=== PATIENT | female | born 1975 | race Caucasian/White ===

== ENCOUNTER 2018-04-04 00:51 | Emergency (ER) | payer SELFPAY ==
--- NOTE | 2018-04-04 01:04 | ER Document Report ---
ED General - General Chief Complaint: Chest Pain Stated Complaint: CHEST PAIN Time Seen by Provider: 04/04/18 01:03 Notes: Patient is a 43-year-old male presents with complaint of pain in the left side of the chest. Pain radiates around the left rib cage and into the left upper chest. She says is been there since Sunday. No fevers. No trauma. No injuries. She says is worse when she twists her torso a certain way or if she pushes away with her left arm. No family history of coronary disease except for her father dying when he was in his 80s. He suddenly and the cause is not clear. No other history of MIs that they are aware of. Patient only takes hormone therapy because of previous history of hysterectomy. She is on no other medications other than omeprazole. She is otherwise very healthy. She does not smoke drink or do drugs. She denies any leg pain or leg swelling. TRAVEL OUTSIDE OF THE [place] IN LAST 30 DAYS: No - Related Data Allergies/Adverse Reactions: No Known Allergies Allergy (Unverified 04/04/18 00:54) Past Medical History - Social History Smoking Status: Never Smoker Frequency of alcohol use: None Drug Abuse: None Family History: Reviewed & Not Pertinent Review of Systems - Review of Systems Notes: My Normal Review Basic REVIEW OF SYSTEMS: CONSTITUTIONAL : Denies fever, chills, or sweats. Denies recent illness. EENT: Denies eye, ear, throat, or mouth pain or symptoms. Denies nasal or sinus congestion. CARDIOVASCULAR: Left sided chest pain RESPIRATORY: Denies cough, cold, or chest congestion. Denies shortness of breath, difficulty breathing, or wheezing. GASTROINTESTINAL: Denies abdominal pain. Denies nausea, vomiting, or diarrhea. MUSCULOSKELETAL: No back pain or joint pain or swelling. SKIN: Denies rash or skin lesions. NEUROLOGICAL: Denies altered mental status or loss of consciousness. Denies sensory or motor loss. ALL OTHER SYSTEMS REVIEWED AND NEGATIVE. Physical Exam - Vital signs Vitals: Temp Pulse Resp BP Pulse Ox 97.3 F 67 16 138/76 H 100 04/04/18 01:06 04/04/18 01:06 04/04/18 01:06 04/04/18 01:06 04/04/18 01:06 - Notes Notes: General Appearance: Well nourished, alert, cooperative, no acute distress, mild obvious discomfort. Vitals: reviewed, See vital signs table. Head: no swelling or tenderness to the head Eyes: PERRL, EOMI, Conjuctiva clear Mouth: No decreasd moisture Neck: Supple, no neck swelling. Lungs: No wheezing, No rales, No rhonci, No accessory muscle use, good air exchange bilaterally. Heart: Normal rate, Regular rythm, No murmur, no rub Chest wall: Patient has very easily reproducible pain palpation over the left chest wall and around the left rib cage into the left upper chest. His pain is also easily reproducible when I have the patient push with her hands against my hand. She has a lot of difficulty pushing with the left arm because it causes a lot of pain into her chest and ribs. Abdomen: Normal BS, soft, No rigidity, No abdominal tenderness, No guarding, no rebound, no abdominal masses, no organomegaly Extremities: strength 5/5 in all extremities, good pulses in all extremities, no swelling or tenderness in the extremities, no edema. Skin: warm, dry, appropriate color, no rash on the back. No evidence of shingles. Neuro: speech clear, oriented x 3, normal affect, responds appropriately to questions. Course - Re-evaluation Re-evalutation: 04/04/18 02:26 Patient's pain is easily reproducible to palpation. Is also easily reducible with motion and palpation. I suspect her pain is musculoskeletal. She has no sniffing cardiac risk factors. Heart score is 1. I feel she is safe to be discharged home. I explained this to the patient and her daughter. Her daughter is one of our ER techs that I know well. I informed them to return to the ER immediately if she has worsening pain, difficulty breathing, or feels unwell. I explained to them that despite having negative workup is still always important to have close follow-up when someone has chest pain. They agreeable to this. Dictation of this chart was performed using voice recognition software; therefore, there may be some unintended grammatical errors. - Vital Signs Vital signs: Temp Pulse Resp BP Pulse Ox 97.3 F 67 16 138/76 H 100 04/04/18 01:06 04/04/18 01:06 04/04/18 01:06 04/04/18 01:06 11/01/18 01:06 - Laboratory Result Diagrams: 04/04/18 01:20 04/04/18 01:20 Laboratory results interpreted by me: 04/04/18 01:20 Creatinine 0.45 L - EKG Interpretation by Me Additional EKG results interpreted by me: 04/04/18 01:03 EKG is reviewed and interpreted by me. EKG shows sinus rhythm with a rate of [address] segment elevation or depression. No ischemic T wave inversions. ID interval, QRS duration, QTc intervals are within normal range. No old EKG available for comparison. Discharge - Discharge Clinical Impression: Chest pain Qualifiers: Chest pain type: unspecified Qualified Code(s): R07.9 - Chest pain, unspecified Condition: Good Disposition: HOME, SELF-CARE Additional Instructions: Based on your exam and symptoms I suspect that your chest pain is related to the muscles or ribs in your chest. I do not think it is related to your heart. The workup looking at your heart tonight was negative. Even though the workup tonight is negative, you should still have a low threshold to return to the ER if you have worsening pain, difficulty breathing, or feel unwell. Please follow-up with your doctor or the heart doctor within 2-3 days for close reevaluation. I will refer you to the heart doctor. His name is Dr. Hernandez. Call his office this morning to make a close follow-up appointment. Referrals: FAREED HERNANDEZ MD [ACTIVE STAFF] - Follow up tomorrow (call office this am to make a close follow up appointment.)
[2018-04-04] MEDS ORDERED: ACETAMINOPHEN 325 MG TABLET PO ONE (01:16)
[2018-04-04 01:32] LABS: ABSOLUTE BASOPHILS # (AUTO) 0.1 10^3/uL (0.0-0.2); ABSOLUTE EOSINOPHILS # (AUTO) 0.2 10^3/uL (0.0-0.6); ABSOLUTE LYMPHOCYTES (AUTO) 2.2 10^3/uL (0.5-4.7); ABSOLUTE MONOCYTES (AUTO) 0.4 10^3/uL (0.1-1.4); ABSOLUTE NEUT (AUTO) 2.7 10^3/uL (1.7-8.2); BASOPHILS % (AUTO) 1.1 % (0-2); EOSINOPHILS % (AUTO) 2.8 % (0-6); HEMATOCRIT 37.9 % (36.0-47.0); HEMOGLOBIN 13.1 g/dL (12.0-15.5); LYMPHOCYTES % (AUTO) 39.3 % (13-45); MEAN CORPUSCULAR HGB CONC 34.7 g/dL (32.0-36.0); MEAN CORPUSCULAR VOLUME 87 fl (80-97); MONOCYTES % (AUTO) 7.9 % (3-13); PLATELET COUNT 179 10^3/uL (150-450); RED BLOOD COUNT 4.38 10^6/uL (3.72-5.28); RED CELL DISTRIBUTION WIDTH 13.2 % (11.5-14.0); SEGMENTED NEUTROPHILS % (AUTO) 48.9 % (42-78); TOTAL CELLS COUNTED % (AUTO) 100 %; WHITE BLOOD COUNT 5.6 10^3/uL (4.0-10.5)
[2018-04-04 01:45] LABS: ALANINE AMINOTRANSFERASE 28 U/L (9-52); ALBUMIN 4.3 g/dL (3.5-5.0); ALKALINE PHOSPHATASE 82 U/L (38-126); ANION GAP 12 (5-19); ASPARTATE AMINO TRANSFERASE 27 U/L (14-36); BILIRUBIN,DIRECT 0.2 mg/dL (0.0-0.4); BILIRUBIN,TOTAL 0.4 mg/dL (0.2-1.3); BLOOD UREA NITROGEN 12 mg/dL (7-20); CALCIUM 9.2 mg/dL (8.4-10.2); CARBON DIOXIDE 30 mmol/L (22-30); CHLORIDE 103 mmol/L (98-107); GLUCOSE 96 mg/dL (75-110); POTASSIUM 3.9 mmol/L (3.6-5.0); SODIUM 144.9 mmol/L (137-145); TOTAL PROTEIN 7.1 g/dL (6.3-8.2)
--- NOTE | 2018-04-04 01:54 | RADIOLOGY REPORT (SQ) ---
EXAM DESCRIPTION: XR CHEST 1 VIEW COMPLETED DATE/TME: 04/04/2018 01:17 CLINICAL HISTORY: 43 years, Female, chest pain COMPARISON: None. NUMBER OF VIEWS: 1 TECHNIQUE: Frontal view the chest LIMITATIONS: None. FINDINGS: Heart size upper limits of normal. Lungs are clear. No pneumothorax IMPRESSION: Heart size at the upper limits of normal. Lungs are clear 2010 [employer]- All Rights Reserved
[2018-04-04 06:11] VITALS: BP 119/76
--- NOTE | 2018-04-04 12:28 | EKG REPORT ---
SEVERITY:- NORMAL ECG - SINUS RHYTHM : Confirmed by: Ariella Rich MD 04-Apr-2018 12:27:20
== END 2018-04-04 02:40 | disposition home or self-care (01) ==
LOC: ER 00:51
DX: R07.9 Chest pain, unspecified (principal)
CPT/HCPCS: 36415; 71045; 80053; 84484; 85025; 93005; 93010; 99285

== ENCOUNTER 2019-11-16 05:00 | Emergency (ER) | payer SELFPAY ==
[2019-11-16] MEDS ORDERED: DIAZEPAM INJ 10 MG/2 ML DISP.SYRIN IV ONE ×2 (05:10→05:51)
[2019-11-16] MEDS ORDERED: NORMAL SALINE 1000 ML 1,000 ML IV ONE (05:11)
[2019-11-16 05:25] LABS: ABSOLUTE BASOPHILS # (AUTO) 0.1 10^3/uL (0.0-0.2); ABSOLUTE EOSINOPHILS # (AUTO) 0.1 10^3/uL (0.0-0.6); ABSOLUTE LYMPHOCYTES (AUTO) 2.1 10^3/uL (0.5-4.7); ABSOLUTE MONOCYTES (AUTO) 0.4 10^3/uL (0.1-1.4); ABSOLUTE NEUT (AUTO) 4.6 10^3/uL (1.7-8.2); BASOPHILS % (AUTO) 0.7 % (0-2); HEMATOCRIT 40.3 % (36.0-47.0); HEMOGLOBIN 13.9 g/dL (12.0-15.5); LYMPHOCYTES % (AUTO) 28.9 % (13-45); MEAN CORPUSCULAR HEMOGLOBIN 30.9 pg (27.0-33.4); MEAN CORPUSCULAR HGB CONC 34.4 g/dL (32.0-36.0); MEAN CORPUSCULAR VOLUME 90 fl (80-97); MONOCYTES % (AUTO) 5.7 % (3-13); PLATELET COUNT 194 10^3/uL (150-450); RED BLOOD COUNT 4.49 10^6/uL (3.72-5.28); RED CELL DISTRIBUTION WIDTH 12.9 % (11.5-14.0); SEGMENTED NEUTROPHILS % (AUTO) 63.7 % (42-78); TOTAL CELLS COUNTED % (AUTO) 100 %; WHITE BLOOD COUNT 7.3 10^3/uL (4.0-10.5)
--- NOTE | 2019-11-16 05:28 | ER Document Report ---
Entered by KOKO SIMPSON SCRIBE 11/16/19 0519 Acting as scribe for:ANGIE LOPEZ IV, MD ED General - General Mode of Arrival: Medic Information source: Relative - Daughter, Emergency Med Personnel TRAVEL OUTSIDE OF THE [place] IN LAST 30 DAYS: No <ANGIE LOPEZ IV - Last Filed: 11/16/19 05:45> <ORLANDO MOTTA - Last Filed: 11/16/19 12:54> - General Chief Complaint: Other Stated Complaint: NOT FEELING WELL Primary Care Provider: RAMANA FARLEY MD [Primary Care Provider] - Follow up as needed Notes: This 44 year old female patient brought in by EMS from home presents to the ED today with complaints of altered mental status that started just prior to arrival. EMS reports that they were called to the patient's residence for cardiac arrest; however, upon their arrival, the patient had a pulse and was breathing. EMS states that the patient was altered with intermittent episodes of twitching and only responsive to a deep sternal rub. EMS administered 0.5 mg Narcan at the scene. Daughter at bedside states that the patient gets a "twitching motion" to her arm sometimes and takes a muscle relaxer for it as needed. Per daughter, the patient has been having spousal issues and went out last night with her where she had approximately x4 beers, stating that she usually doesn't drink. She states that she was called around 0400 and told that her mother was on the way to the ED due to her altered mental status. She also states that the patient has been under a lot of stress. Patient is a [place]yanese-speaker. (ANGIE LOPEZ IV) - Related Data Allergies/Adverse Reactions: No Known Allergies Allergy (Unverified 04/04/18 00:54) Past Medical History - General Information source: Relative - Daughter - Social History Smoking Status: Unknown if Ever Smoked Cigarette use (# per day): No Chew tobacco use (# tins/day): No Smoking Education Provided: No Frequency of alcohol use: Social Lives with: Spouse/Significant other Family History: Reviewed & Not Pertinent <ANGIE LOPEZ IV - Last Filed: 11/16/19 05:45> - Social History Smoking Status: Unknown if Ever Smoked Family History: Reviewed & Not Pertinent <ORLANDO MOTTA - Last Filed: 11/16/19 12:54> Review of Systems - Review of Systems -: Yes ROS unobtainable due to patient's medical condition <ANGIE LOPEZ IV - Last Filed: 11/16/19 05:45> Physical Exam - General General appearance: Other - Somnolent. Random jerking motions that do not appear consistent with focal or complex seizures - HEENT Head: Normocephalic, Atraumatic Eyes: Normal Pupils: PERRL - Respiratory Respiratory status: No respiratory distress Chest status: Nontender Breath sounds: Normal Chest palpation: Normal - Cardiovascular Rhythm: Regular Heart sounds: Normal auscultation Murmur: No Friction rub: No Gallop: None auscultated - Abdominal Inspection: Normal Distension: No distension Bowel sounds: Normal Tenderness: Nontender - Abdomen soft Organomegaly: No organomegaly - Back Back: Normal, Nontender - Extremities General upper extremity: Normal inspection General lower extremity: Normal inspection - Psychological Associated symptoms: Other - Unable to assess due to patient's medical condition - Skin Skin Temperature: Warm Skin Moisture: Dry Skin Color: Normal <ANGIE LOPEZ IV - Last Filed: 11/16/19 05:45> - Vital signs Vitals: Resp Pulse Ox 16 99 11/16/19 05:02 11/16/19 05:02 - Neurological Notes: Opens eyes at times and stares into space. (JOHNANGIE WATERS IV) Course - Laboratory Result Diagrams: 11/16/19 05:07 11/16/19 05:07 <ANGIE LOPEZ IV - Last Filed: 11/16/19 05:45> - Laboratory Result Diagrams: 11/16/19 05:07 11/16/19 05:07 <ORLANDO MOTTA - Last Filed: 11/16/19 12:54> - Vital Signs Vital signs: Temp Pulse Resp BP Pulse Ox 97.8 F 14 124/96 H 98 11/16/19 05:27 11/16/19 12:01 11/16/19 12:01 11/16/19 12:01 - Laboratory Laboratory results interpreted by me: 11/16/19 05:07 Chloride 108 H - EKG Interpretation by Me Additional EKG results interpreted by me: 11/16/19 05:45 EKG obtained on 11/16/2019 at 0539 hrs. was interpreted by this MD. Findings: Normal sinus rhythm, rate 84, normal axis, P waves preceding QRS complexes, QRS complexes appear narrow, there are no obvious patterns of ST segment elevation or depression present to suggest acute myocardial ischemia or infarction. Impression: Normal sinus rhythm with nonspecific ST segments. (ANGIE LOPEZ IV) Discharge <ANGIE LOPEZ IV - Last Filed: 11/16/19 05:45> <M[place]O - Last Filed: 11/16/19 12:54> - Discharge Clinical Impression: Suicidal ideation Altered mental status Qualifiers: Altered mental status type: transient alteration of awareness Qualified Code(s): R40.4 - Transient alteration of awareness Alcohol intoxication Qualifiers: Complication of substance-induced condition: with unspecified complication Daren lified Code(s): F10.929 - Alcohol use, unspecified with intoxication, unspecified Condition: Fair Disposition: PSYCH HOSP/UNIT Referrals: RAMANA FARLEY MD [Primary Care Provider] - Follow up as needed I personally performed the services described in the documentation, reviewed and edited the documentation which was dictated to the scribe in my presence, and it accurately records my words and actions.
--- NOTE | 2019-11-16 05:44 | RADIOLOGY REPORT (SQ) ---
CLINICAL HISTORY: ams COMPARISON: None. TECHNIQUE: CT HEAD WITHOUT IV CONTRAST on 11/16/2019 5:13 AM CDT This exam was performed according to our departmental dose-optimization program, which includes automated exposure control, adjustment of the mA and/or kV according to patient size and/or use of iterative reconstruction technique. FINDINGS: There is no acute hemorrhage, mass effect or midline shift. Ramírez-white differentiation is preserved. There is no hydrocephalus. There is no significant volume loss for age. The calvarium is intact. Orbits and globes are unremarkable. The paranasal sinuses are clear. Mastoid air cells are clear. IMPRESSION: No acute intracranial findings.
[2019-11-16 05:46] LABS: ALBUMIN 4.7 g/dL (3.5-5.0); ALCOHOL 61 mg/dL (NONE DETECTED); ALKALINE PHOSPHATASE 71 U/L (38-126); ANION GAP 11 (5-19); ASPARTATE AMINO TRANSFERASE 29 U/L (14-36); BILIRUBIN,TOTAL 0.3 mg/dL (0.2-1.3); BLOOD UREA NITROGEN 10 mg/dL (7-20); CALCIUM 9.2 mg/dL (8.4-10.2); CARBON DIOXIDE 23 mmol/L (22-30); CHLORIDE 108 mmol/L (98-107); GLUCOSE 97 mg/dL (75-110); POTASSIUM 3.9 mmol/L (3.6-5.0); TOTAL PROTEIN 7.7 g/dL (6.3-8.2)
--- NOTE | 2019-11-16 05:50 | RADIOLOGY REPORT (SQ) ---
EXAM DESCRIPTION: RadLex: XR CHEST 1 VIEW CLINICAL HISTORY: 44 years Female; ams; COMPARISON: 04/04/2018 FINDINGS: Lungs: Lungs are clear, with no focal infiltrate, pneumothorax, or pleural effusion. Mediastinum: Mediastinum is within normal limits for this positioning. Bones: Bony structures are unremarkable. IMPRESSION: 1. No acute pulmonary findings.
--- NOTE | 2019-11-16 12:40 | ER Document Report ---
Doctor's Note Notes: 11/16/19 12:39 44-year-old female that presents today with some depression secondary to an upcoming divorce/separation with her of 27 years. Patient was drinking some alcohol. Patient signed out to me by the outgoing physician. Vital signs are stable. Labs as recorded. Patient has been alert and oriented with me here. No focal deficits with lethargy. Behavioral health has talked to the patient and believe that the patient has had some suicidal ideations recently. She will place the patient on paperwork and hold the patient here overnight for medication adjustment and further assessment.
--- NOTE | 2019-11-16 13:16 | PSYCHOLOGICAL NOTE ---
Psych Note - Psych Note Date seen by psych provider: 11/16/19 Time seen by psych provider: 12:00 Psych Note: Reason for Consult: depression/ AMS Patient arrived to [facility] ED AMS. EMS reports pt as being unresponsive as they arrived; however, had strong +2 bilateral carotid/radial pulses. Pt is responsive to deep sternal rub by EMS; however, EMS denies responsiveness to ammonia inhalants. Pt also presents with intermittent jerking movements of bilateral upper and lower extremities without rigidity noted. Patient speaks Danish She reports she has been 27 years and her wanted a divorce. She reports being scared and feels she has nothing. She disclosed she has always taken care of the family and does not have a job. She continued to disclose she has no idea why her wants a divorce. She does not know if it is another woman or not. She disclosed she attempted to hurt herself Tk night (it is unclear what she did). She discloses wanting help. Patient is alert and orientated to person, place, time and circumstance. Mood is very dysphoric with tearful affect. Patient admits to suicidal ideation/gesture Tk evening. Delusions are absent and behaviors congruent with an intact reality based presentation ie organized and linear thought process. Eye contact is well maintained. Conversational speech is in Danish. Intellectual abilities appear to be within the average range. Attention and concentration is good. Insight, judgment, impulse control is fair. Clinical presentation: Marital discord/divorce Identity crisis Depression/suicidal ideation Medication recommendations per [facility]'s contracted psychiatrist Dr. Keesha RECIO are as follows: Celexa 20mg daily Buspar 5mg twice daily Impression\plan: Patient is recommended for 24-hour petition for evaluation. Patient is very dysphoric with tearful affect. She reports she is currently going through divorce after being for 27 years. She is very scared and is having difficulty identifying who and what she will be and how she will support herself. She continued to disclose that she does not know why her wants a divorce which adds to her confusion. She discloses attempting to harm herself Tk evening 11/14/2019 however it is unclear what she did. Patient asked clinician for help. Dr. Daly was consulted in the care management of this patient; tending physicians in agreement with recommendations and disposition.
[2019-11-16] MEDS ORDERED: BUSPIRONE HCL 10 MG TABLET PO ONE (14:08)
[2019-11-16] MEDS ORDERED: CITALOPRAM HYDROBROMIDE 20 MG TABLET PO ONE (14:08)
[2019-11-16 14:30] LABS: APPEARANCE,URINE CLEAR; BILIRUBIN,URINE NEGATIVE (NEGATIVE); COLOR,URINE YELLOW; GLUCOSE, URINE NEGATIVE (NEGATIVE); KETONES,URINE NEGATIVE (NEGATIVE); LEUKOCYTE ESTERASE,URINE NEGATIVE (NEGATIVE); NITRITE,URINE NEGATIVE (NEGATIVE); PROTEIN,URINE NEGATIVE (NEGATIVE); URINE SPECIFIC GRAVITY 1.011; UROBILINOGEN,URINE NEGATIVE mg/dL (<2.0)
[2019-11-16 14:47] LABS: URINE AMPHETAMINES SCREEN NEGATIVE; URINE BARBITURATES SCREEN NEGATIVE; URINE BENZODIAZEPINES SCREEN NEGATIVE; URINE COCAINE SCREEN NEGATIVE; URINE MARIJUANA (THC) SCREEN NEGATIVE; URINE METHADONE SCREEN NEGATIVE; URINE PHENCYCLIDINE SCREEN NEGATIVE
[2019-11-16] MEDS ORDERED: BUSPIRONE HCL 10 MG TABLET PO SCH (20:00)
--- NOTE | 2019-11-16 22:42 | EKG REPORT ---
SEVERITY:- NORMAL ECG - SINUS RHYTHM : Confirmed by: Ariella Rich MD 16-Nov-2019 22:41:14
[2019-11-17] MEDS ORDERED: BUSPIRONE HCL 10 MG TABLET PO SCH (10:00)
[2019-11-17] MEDS ORDERED: CITALOPRAM HYDROBROMIDE 20 MG TABLET PO SCH (10:00)
--- NOTE | 2019-11-17 14:23 | ER Document Report ---
Doctor's Note Notes: 11/17/19 14:22 Patient is resting quietly in the room in no distress. She is currently reading a book she has been evaluated by psychiatric team who are comfortable with the plan for discharge. Follow-up has been arranged for the patient will keep her on Celexa 20 mg daily and BuSpar 5 mg twice daily 1 month prescription
[2019-11-17 14:45] VITALS: BP 125/83
--- NOTE | 2019-11-18 08:31 | PSYCHOLOGICAL NOTE ---
Psych Note - Psych Note Date seen by psych provider: 11/17/19 Time seen by psych provider: 12:53 - [id number] Psych Note: Presenting Problem: Patient is a 44 year old female who presented to the [facility] ED early yesterday morning via EMS for AMS, increased depression and suicidal ideation. All felt to be caused and/or exacerbated by marital discord to extent there is discussion of divorce. Patient was subsequently put on a 24 Hour Petition for evaluation. Medications (Celexa 20MG QD, Buspar 5MG BID) started yesterday. Utilized Martti due to language (patient is more fluid in [place]) barrier. Patient identified "I am fine, really better today." She denied negative side effects to medications. She identified "I need to go home, my house is my safe/calming place." Patient admitted she came in yesterday "crying a lot and feels more at ease now." Patient denied current SI/HI, admitted to having passive general SI a couple days ago after finding out about her that she has been to for 27 years was unfaithful, and that about 6 months ago she had similar thoughts. She commented "I have never done anything, would never have courage or whatever you call it to do that." Patient admitted "a couple days ago I was desperate, but now I want to fight for my daughters, study to become something and fight for my life." Patient stated she could see her PCM for medications and commented "I don't want to end up with depression." She agreed to therapy linkage. Patient also gave verbal consent to include her daughter Yesi in plan of care. Patient was alert and oriented to self, person, place, time and situation. Mood was euthymic with congruent affect. She denied current SI/HI, admitted to past SI 2 days ago and 6 months ago which was passive and general thoughts of not wanting to live. Patient denied action, said she couldn't do that and noted fighting for her daughters/to study and be something/her life. Patient did not appear to be responding to internal stimuli as evidenced by fair eye contact and answering questions appropriately when addressed. Thought processes were linear and organized. Conversational speech was within normal limits for rate, tone and prosody. Intellectual abilities are estimated to be average. Insight, judgment and impulse control were fair as evidenced by discussing and processing her "desperate state" as well as giving reasons to live (daughters, study to become something, her life). Collateral: At 1408 tried calling daughter Yesi Gutierrez ([phone]). No answer. Attending ED Nurse stated daughter had just been visiting so she called her back about discharge, providing transportation and being part of discharge plan. Spoke to daughter in person when she came to provide transportation. Included daughter in plan f care (aware of prescriptions, medication names and what they are meant to treat, follow up with PCM at least, but get connected with MH provider). Clinical Presentation: Marital discord/divorce Identity crisis Depression/suicidal ideation Diagnosis: Depression Anxiety Medication recommendations: Provide prescription for medications administered while in the ED Celexa 20MG QD Buspar 5MG BID Impression/Plan: Patient is cleared from acute psychiatric services. Recommendation to RESCIND 24 Hour Petition for Evaluation. Medications were started yesterday. patient denied and no observed negative side effects. Patient denied current SI.HI, admitted to having passive general SI about not wanting to live 2 days ago and 6 months ago, never taking action and giving reasons to live (daughters, study to become something, her own life). Patient did not seem to be responding to internal stimuli given fair eye contact, being engaged in evaluation and ability to carry on linear dialogue conversation. Encouraged patient to follow up with PCM but provided the outpatient MH resource sheet which documented walk in times for IFS (therapy and medication management), and highlighted both MCM numbers. Daughter included in plan of care (aware of prescriptions, medication names and what they are meant to treat, follow up with PCM at least, but get connected with MH provider). Consulted with Dr. Daly regarding the management and care of patient. ED Physician in agreement with recommendations.
== END 2019-11-17 14:35 | disposition home or self-care (01) ==
LOC: ER 05:00
DX: R45.851 Suicidal ideations (principal); R40.4 Transient alteration of awareness; F10.929 Alcohol use, unspecified with intoxication, unspecified; Z65.8 Other specified problems related to psychosocial circumstances
CPT/HCPCS: 93005; 36415; 80307 ×2; 85025; 80053; 81001; 84484; 71045; 70450; 93010; J3360; J7030; 96361; 96374; 96376; 99285